=== PATIENT | female | born 1960 | race Caucasian/White ===

== ENCOUNTER 2018-11-19 15:38 | Inpatient (IN) | payer OTHER ==
[~2018-11-19] VITALS: Ht 165.1 cm; Wt 77.1 kg
[2018-11-19 15:45] VITALS: BP 181/89
[2018-11-19 15:55] LABS: HEMATOCRIT 39.6 % (37.0-47.0); HEMOGLOBIN 13.5 gm/dL (12.0-15.0); MCH 29.2 pg (26.0-34.0); MCV 85.7 fL (80.0-100.0); MPV 9.3 fl. (7.2-11.1); NUCLEATED RBCS 0 /100WBC; PLATELET COUNT* 261 thou/uL (150-400); RBC 4.63 mil/uL (4.20-5.00); RDW-CV 13.4 % (10.5-14.5); WBC 14.9 thou/uL (4.0-11.0)
[2018-11-19 16:05] LABS: ANION GAP 12 mmol/L (7-16); BUN 16 mg/dL (7-18); CALCIUM 9.1 mg/dL (8.5-10.1); CHLORIDE 103 mmol/L (98-107); CO2 25 mmol/L (21-32); CREATININE 1.1 mg/dL (0.6-1.3); GLUCOSE 118 mg/dL (70-99); POTASSIUM 3.4 mmol/L (3.5-5.1); SODIUM 140 mmol/L (136-145)
[2018-11-19 16:15] LABS: ALBUMIN 3.8 g/dL (3.4-5.0); ALKALINE PHOSPHATASE 113 U/L (46-116); LIPASE 105 U/L (73-393); MAGNESIUM 1.8 mg/dL (1.8-2.4); NT-PRO BRAIN NAT PEPTIDE 372 pg/mL (<300); SGOT 16 U/L (15-37); SGPT 25 U/L (30-65); TOTAL BILIRUBIN 0.4 mg/dL (<0.1-1.0); TOTAL PROTEIN 7.8 g/dL (6.4-8.2); TROPONIN-I LEVEL <0.06 ng/mL (<0.06)
[2018-11-19 16:26] LABS: ABSOLUTE LYMPHOCYTES 1.9 thou/uL (0.8-5.3); ABSOLUTE MONOCYTES 0.7 thou/uL (0.0-1.2); ABSOLUTE NEUTROPHILS 12.2 thou/uL (1.6-8.1)
[2018-11-19 16:27] LABS: PLATELET ESTIMATE ADEQUATE
[2018-11-19 17:55] LABS: URINE BILIRUBIN NEGATIVE (Negative); URINE BLOOD NEGATIVE (Negative); URINE CLARITY CLEAR; URINE COLOR YELLOW; URINE GLUCOSE-RANDOM NEGATIVE (Negative); URINE KETONES NEGATIVE (Negative); URINE LEUKOCYTES-REFLEX NEGATIVE (Negative); URINE NITRITE-REFLEX NEGATIVE (Negative); URINE PROTEIN NEGATIVE (Negative); URINE UROBILINOGEN 0.2 E.U./dl (0.2-1.0)
[2018-11-19 21:20] VITALS: BP 142/80
[2018-11-19 21:27] VITALS: BP 150/51
[2018-11-19 23:52] VITALS: BP 148/68
[2018-11-20 04:00] VITALS: BP 151/72
[2018-11-20 05:13] LABS: ABSOLUTE BASOPHILS 0.1 thou/uL (0.0-0.2); ABSOLUTE EOSINOPHILS 0.2 thou/uL (0.0-0.7); ABSOLUTE LYMPHOCYTES 1.8 thou/uL (0.8-5.3); ABSOLUTE MONOCYTES 0.5 thou/uL (0.0-1.2); ABSOLUTE NEUTROPHILS 7.6 thou/uL (1.6-8.1); BASOPHILS 0.6 %; EOSINOPHILS 1.9 %; HEMATOCRIT 34.8 % (37.0-47.0); LYMPHOCYTES 17.4 %; MCH 29.4 pg (26.0-34.0); MCHC 34.4 g/dL (28.0-37.0); MCV 85.6 fL (80.0-100.0); MONOCYTES 5.3 %; MPV 9.5 fl. (7.2-11.1); NUCLEATED RBCS 0 /100WBC; PLATELET COUNT* 204 thou/uL (150-400); POLYS 74.8 %; RBC 4.07 mil/uL (4.20-5.00); RDW-CV 13.3 % (10.5-14.5); WBC 10.1 thou/uL (4.0-11.0)
[2018-11-20 05:20] LABS: CREATININE 1.1 mg/dL (0.6-1.3); POTASSIUM 3.4 mmol/L (3.5-5.1)
[2018-11-20 07:30] VITALS: BP 147/71
[2018-11-20 12:00] VITALS: BP 154/82
[2018-11-20 14:36] VITALS: BP 154/82
--- NOTE | 2018-11-20 16:41 | EKG ---
[place] [address] ELECTROCARDIOGRAM REPORT Name: ROGER CORNEJOANETTE Room: [address] ADM IN M.R.#: [id number] Admission: 11/19/18 Attend Phys: Renan Rene MD Discharge: Date of : 56 Report #: [id number] THIS REPORT FOR: //name// [facility] ED Test Date: 2018-11-19 Test Time: 15:42:59 Pat Name: VALENTINE CORNEJO Department: Room: [facility] Gender: F Brass Sorter: : 1960 Requested By: Bentley Sandhu Order Number: [id number] MD: Joey Marvin Measurements Intervals [place] Rate: 90 P: 64 IN: 162 QRS: 55 QRSD: 116 T: 31 QT: 412 QTc: 504 Interpretive Statements Sinus rhythm Unifocal premature ventricular contractions Nonspecific intraventricular conduction delay Low voltage, precordial leads Delayed R-wave progression No previous ECG available for comparison Electronically Signed On 11-20-2018 16:41:36 CDT by Joey Marvin [email or web address] <ELECTRONICALLY SIGNED> By: Joey Marvin MD, FACC 11/20/18 1641 1542 1542 Joey Marvin MD, FAC /EPI
[2018-11-20 21:30] VITALS: BP 148/80
[2018-11-21 08:00] VITALS: BP 161/81
[2018-11-21 08:19] LABS: HEMATOCRIT 34.1 % (37.0-47.0); HEMOGLOBIN 11.6 gm/dL (12.0-15.0); MCH 29.5 pg (26.0-34.0); MCHC 34.2 g/dL (28.0-37.0); MCV 86.2 fL (80.0-100.0); MPV 9.2 fl. (7.2-11.1); RBC 3.95 mil/uL (4.20-5.00); RDW-CV 13.3 % (10.5-14.5); WBC 11.3 thou/uL (4.0-11.0)
[2018-11-21 08:36] LABS: ALBUMIN 2.8 g/dL (3.4-5.0); CALCIUM 8.1 mg/dL (8.5-10.1); CREATININE 1.1 mg/dL (0.6-1.3); TOTAL BILIRUBIN 0.7 mg/dL (<0.1-1.0); TOTAL PROTEIN 6.6 g/dL (6.4-8.2)
[2018-11-21] MEDS ORDERED: SENOKOT-S TABL1 EACH PO (13:59)
[2018-11-21] MEDS ORDERED: HYDROCODON-ACE1 EAC7 PO (13:59)
[2018-11-21 14:00] LABS: CHOLESTEROL 197 mg/dL (<200); HDL CHOLESTEROL 60 mg/dL (>40); LDL CHOLESTEROL 122 mg/dL (<100); SERUM ASSESSMENT Clear; TC:HDL 3.3 Ratio (Not establshd); TRIGLYCERIDE 75 mg/dL (<150); VLDL 15 mg/dL (<40)
[2018-11-21] MEDS ORDERED: HYDROCHLOROTH12.5 M1 PO (14:05)
[2018-11-21 15:48] VITALS: BP 161/81
[2018-11-22 02:06] LABS: GLYCOHEMOGLOBIN (HGB A1C) 5.4 % (4.8-5.6)
--- NOTE | 2018-11-23 14:06 | PATH ---
[address] [address] PATHOLOGY RPT PROCEDURE Name: RODRIGUEZVALENTINE Room: [address] IN M.R.#: [id number] Admission: 11/19/18 Date of : 56 Discharge: 11/21/18 Report #: [id number] Path Case #: [id number] [facility] Accession Number: [id number] . 01 Material submitted: . gallbladder - GALLBLADDER AND CONTENTS . 01 Clinical history: . Pre-op diagnosis: Cholelithiasis Post-op diagnosis: Cholelithiasis, acute cholecystitis . 02 Diagnosis: Gallbladder with contents: - Chronic and acute ulcerative cholecystitis and cholelithiasis. . (STANLEY:mml; 11/23/2018) [facility] 11/23/2018 1141 Local . 02 Electronically signed: . Hima Gama MD, Pathologist NPI- [id number] . 01 Gross description: . The specimen is received in formalin, labeled "Valentine Rodriguez, gallbladder with contents". Received is a previously opened gallbladder measuring 8.4 x 3.4 x 2.6 cm in greatest dimensions displaying a adipose covered serosal surface. Opening the specimen reveals a velvety to shaggy, light brown mucosa with a gallbladder wall thickness of 0.1 cm. Calculi are present displaying a yellow-arguello and smooth to nodular appearance, and no masses or lesions are noted grossly. Intern sections, to include the proximal margin, are submitted in cassette A1. (CAA; 11/22/2018) QAC/QA 11/22/2018 0823 Local . 02 Pathologist provided ICD-10: K80.12 . 02 CPT . 202347 Specimen Comment: A courtesy copy of this report has been sent to Specimen Comment: [phone], . Specimen Comment: Report sent to / DR LEONARD Performed at: [address] [id number] MD Justyn Ugalde MD Phone: [phone] Performed at: [address] [place] [address] PATHOLOGY RPT PROCEDURE Name: VALENTINE RODRIGUEZ Room: [address] IN M.R.#: [id number] Admission: 11/19/18 Date of : 56 Discharge: 11/21/18 Report #: [id number] Path Case #: [id number] [address], [place] [id number] MD Hima Gama MD Phone: [phone]
--- NOTE | 2018-11-26 11:03 | OP ---
[address] [address] OPERATIVE REPORT Name: VALENTINE CORNEJO Room: [address] IN M.R.#: [id number] Admission: 11/19/18 Attend Phys: Renan Rene MD Discharge: 11/21/18 Date of : 56 Report #: [id number] THIS REPORT FOR: //name// CC: Renan Rene [facility] physician/PCP DATE OF SERVICE: 11/20/2018 PREOPERATIVE DIAGNOSIS: Acute cholecystitis with cholelithiasis. POSTOPERATIVE DIAGNOSES: Acute cholecystitis with cholelithiasis with a 4.5 x 4 cm gallstone. PROCEDURE: Laparoscopic cholecystectomy with aspiration of the gallbladder. SURGEON: Bill Porras DO BODY BUMPER: Dr. Leland Vasquez. ANESTHESIA: General endotracheal. ESTIMATED BLOOD LOSS: Less than 30 mL. COMPLICATIONS: None. DESCRIPTION OF PROCEDURE: After obtaining proper consents and discussing risks and complications with the patient, she was taken to the operating room, laid in the supine position, administered general anesthesia. She was then prepped and draped in the usual sterile fashion. The timeout was performed. We confirmed the appropriate patient and procedure. Preoperative antibiotics had been given. SCDs were in place. We then made a small supraumbilical skin incision with a #11 scalpel blade. This was carried down through the skin and the subcutaneous tissue using electrocautery for hemostasis. Once the fascia was encountered, it was incised along the midline, grasped and elevated with Jeanne clamps and divided further. The peritoneum was then bluntly opened using a hemostat. A finger was placed inside the peritoneal cavity to assure that there were no dawit-incisional adhesions. Next, 2-0 Vicryl sutures were placed in a [id number] fashion to secure the Agusto trocar, which was then inserted and insufflation was begun. Once insufflation was complete, full visual inspection of the anterior abdominal organs was performed. This revealed a fatty appearing liver. The gallbladder appeared markedly inflamed and distended. We then placed the patient in reverse Trendelenburg position, rotated her to the left. A 5 mm subxiphoid trocar was placed. We then were able to elevate the liver and again identified a very inflamed, thick walled distended appearing gallbladder. We then placed two more 5 mm trocars in the right upper quadrant. I was unable to grasp the gallbladder at this point because it was too tense, [place] [address] OPERATIVE REPORT Name: VALENTINE CORNEJO Room: [address]#: [id number] Admission: 11/19/18 Attend Phys: Renan Rene MD Discharge: 11/21/18 Date of : 56 Report #: [id number] to use an aspiration needle. We aspirated approximately 40 mL of thick bilious fluid from the gallbladder. I was then able to grasp and elevate the gallbladder. We identified Rocky's pouch, which was grasped and elevated. There was inflammation identified in the area of the hepatoduodenal ligament. I was able to bluntly dissect the hepatoduodenal ligament down until I was able to visualize the cystic duct as it coursed directly into the gallbladder. I did use immunofluorescence imaging and ICG dye had been given previously in the preoperative holding area, so I was able to visualize the cystic duct as it coursed directly into the gallbladder. I was also able to visualize the common hepatic duct and common bile duct using immunofluorescence imaging and assured that they were kept out of harm's way. I then dissected the cystic duct free. It was clipped proximally and distally and then divided between clips. I was then able to dissect out the cystic artery and again assured that this was not a ductal structure. Using immunofluorescence imaging, I then dissected the artery free. It was seen coursing directly into the gallbladder, it was clipped proximally and distally and then divided between clips. I was then able to remove the gallbladder from the liver bed. This was quite difficult as there was a large stone within the gallbladder which made dissection more difficult. However, I was able to use electrocautery as well as blunt dissection and eventually we were able to remove the gallbladder from the liver bed. I then placed the gallbladder into an Endopouch. We then copiously irrigated and checked the cystic duct and cystic artery stumps for any leak or bleeding. I also cauterized the liver bed and then checked it for any leak or bleeding. We used immunofluorescence imaging again to assure no biliary leaking. As a precaution, I used Surgiflo in the gallbladder fossa as well. We then stopped the insufflation. All air was released. Trocars were removed. The gallbladder was removed through the umbilical incision within the Endopouch. I did have to enlarge the fascial and skin openings in order to remove the large stone. Once the stone was removed, I did go on the back table and cut the gallbladder open. We removed the stone and then measured it and it was measured at 4.5 x 4 cm and was quite firm and hard. Once this was done, I then went back to the patient's bedside where we closed the fascia of the umbilical incision using interrupted 0 Vicryl sutures in a [id number]-[id number]-crzhl fashion. The subcutaneous tissues of that wound were then closed using 3-0 Vicryl suture. All skin incisions were closed using 4-0 Monocryl subcuticular stitches. The patient underwent tap blocks prior to surgery, so we did not inject any local anesthetic. We then placed sterile dressings. The patient was then awakened in the operating room and transported to recovery room in stable condition. <ELECTRONICALLY SIGNED> By: Bill Porras DO 11/26/18 1103 20 [id number] Porras DO /nt
== END 2018-11-21 16:30 | disposition home or self-care (01) | DRG 418 ==
LOC: M.ERS 15:38 → M.2W 17:52 → M.TBA-ER 17:52 → M.2W 20:03
PROVIDERS: Emergency Medicine Emergency Medical Services; Surgery; ADMIT Internal Medicine
PROC: 0FT44ZZ Resection of Gallbladder, Percutaneous Endoscopic Approach (ICD-10-PCS; principal; 2018-11-20)
DX: K80.00 Calculus of gallbladder with acute cholecystitis without obstruction (principal); R65.10 Systemic inflammatory response syndrome (SIRS) of non-infectious origin without acute organ dysfunction; E66.01 Morbid (severe) obesity due to excess calories; I10 Essential (primary) hypertension; K21.9 Gastro-esophageal reflux disease without esophagitis; Z98.891 History of uterine scar from previous surgery; Z68.28 Body mass index [BMI] 28.0-28.9, adult